=== PATIENT | female | born 1990 | race African-American/Black ===

== ENCOUNTER 2018-05-31 01:46 | Emergency (ER) | payer SELFPAY ==
[2018-05-31 03:55] LABS: Bilirubin Negative (Negative); Blood, Urine Negative (Negative); Clarity CLOUDY (Clear); Glucose, Urine (Dipstick) Negative (Negative); Leukocyte Small (Negative); Nitrite Negative (Negative); Protein, Urine (Dipstick) Negative (Neg-Trace); Specific Gravity, Urine 1.007 (1.002-1.036); Urobilinogen 0.2 mg/dL (0.2-1.0); pH, Urine 5.5 (5.0-9.0)
[2018-05-31 03:57] LABS: Bacteria/HPF Rare-Few HPF (None Seen); Hyaline Casts/LPF 0-3 HYALINE CAST LPF (0-3 Hyaline); Pathc Cast-AUWi Flag 0.43 (0-2.49); Pregnancy Test - Urine (BHCG) Negative (Negative); Pregu Control Background? CLEAR/WHITE (CLR/WHITE); Pregu Control Bar Appear? YES (CONTROL BAR); RBC/HPF 0-3 HPF (0-3); Specific Gravity 1.007 (1.002-1.036)
[2018-05-31 04:25] LABS: #Lymphocytes 1.1 thou/uL (1.20-3.40); #Monocytes 0.4 thou/uL (0.11-0.59); #Neutrophils 8.8 thou/uL (1.40-6.50); %Basophils 0.1 % (0.0-1.0); %Lymphocytes 10.4 % (21.0-51.0); %Monocytes 3.9 % (0.0-10.0); %Neutrophils 85.5 % (42.0-75.0); Hemoglobin 12.1 g/dL (12.0-16.0); Mean Corpuscular HGB CONC 33.8 g/dL (32.0-36.0); Mean Corpuscular Hemoglobin 31.9 pg (27.0-31.0); Mean Corpuscular Volume 94.3 fL (78.0-98.0); Mean Platelet Volume 8.4 fL (7.4-10.4); Platelet Count 145 thou/uL (130-400); RBC Distribution Width 13.2 % (11.5-14.5); Red Blood Cell (RBC) Count 3.78 mill/uL (4.20-5.40); White Blood Cell (WBC) Count 10.3 thou/uL (4.8-10.8)
[2018-05-31] MEDS ORDERED: Fentanyl 100 MCG/2 ML VIAL ONE (04:29)
[2018-05-31] MEDS ORDERED: Ketorolac Tromethamine 30 MG/ML VIAL ONE (04:29)
[2018-05-31 04:39] LABS: ALT (SGPT) 11 U/L (8-55); AST (SGOT) 20 U/L (5-34); Albumin 4.3 g/dL (3.5-5.0); Alkaline Phosphatase 57 U/L (40-150); Anion Gap 13 mmol/L (10-20); BUN (Urea Nitrogen) 8 mg/dL (7.0-18.7); Bilirubin, Total 0.8 mg/dL (0.2-1.2); Calc. Creatinine Clearance 0 mL/min (70-130); Calcium 9.2 mg/dL (7.8-10.44); Carbon Dioxide 20 mmol/L (22-29); Chloride 107 mmol/L (98-107); Estimated GFR-MDRD Greater than 90; Globulin 3.2 g/dL (2.4-3.5); Glucose 112 mg/dL (70-105); Potassium 3.3 mmol/L (3.5-5.1); Protein, Total 7.5 g/dL (6.0-8.3); Sodium 137 mmol/L (136-145)
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
== END 2018-05-31 06:25 | disposition home or self-care (01) ==
LOC: ERS 01:46
DX: S06.0X9A Concussion with loss of consciousness of unspecified duration, initial encounter (principal); S00.11XA Contusion of right eyelid and periocular area, initial encounter; N39.0 Urinary tract infection, site not specified; S40.212A Abrasion of left shoulder, initial encounter; F32.9 Major depressive disorder, single episode, unspecified; Y08.89XA Assault by other specified means, initial encounter
CPT/HCPCS: 70450; 70486; 71045; 80053; 81003; 81015; 81025; 85025; 96361; 96374; 96375; J1885; J3010

== ENCOUNTER 2019-05-09 19:07 | Emergency (ER) | payer SELFPAY ==
[2019-05-09] MEDS ORDERED: Acetaminophen 325 MG TAB ONE (20:09)
== END 2019-05-09 20:42 | disposition home or self-care (01) ==
LOC: ERS 19:07
DX: J02.9 Acute pharyngitis, unspecified (principal)
CPT/HCPCS: 87081; 87430; 99283

== ENCOUNTER 2019-05-29 03:05 | Emergency (ER) | payer SELFPAY ==
[2019-05-29] MEDS ORDERED: Lidocaine 1% w/Epinephrine 1:100K 20 ML VIAL ONE (04:07)
[2019-05-30 20:36] LABS: Chlamydia by PCR DETECTED (NotDetected); GC by PCR Not Detected (NotDetected)
== END 2019-05-29 04:52 | disposition home or self-care (01) ==
LOC: ERS 03:05
DX: N76.4 Abscess of vulva (principal); F32.9 Major depressive disorder, single episode, unspecified
CPT/HCPCS: 56405; 87491; 87591; J2001

== ENCOUNTER 2019-10-01 12:43 | Emergency (ER) | payer SELFPAY ==
[2019-10-01] MEDS ORDERED: Adacel (T-DAP) 0.5 ML SYRINGE ONE (14:19)
== END 2019-10-01 14:32 | disposition home or self-care (01) ==
LOC: ERS 12:43
DX: S71.151A Open bite, right thigh, initial encounter (principal); S51.852A Open bite of left forearm, initial encounter; S81.852A Open bite, left lower leg, initial encounter; F32.9 Major depressive disorder, single episode, unspecified; W54.0XXA Bitten by dog, initial encounter
CPT/HCPCS: 90471; 90715

== ENCOUNTER 2020-05-30 05:18 | Emergency (ER) | payer OTHER | END 2020-05-30 06:02 | disposition home or self-care (01) | LOC: ERS 05:18 | DX: O9A.212 Injury, poisoning and certain other consequences of external causes complicating pregnancy, second trimester (principal); S00.212A Abrasion of left eyelid and periocular area, initial encounter; O99.342 Other mental disorders complicating pregnancy, second trimester; F32.9 Major depressive disorder, single episode, unspecified; Z3A.21 21 weeks gestation of pregnancy; W01.198A Fall on same level from slipping, tripping and stumbling with subsequent striking against other object, initial encounter | CPT/HCPCS: 99283 ==

== ENCOUNTER 2020-06-06 07:02 | Outpatient (CLI) | payer OTHER ==
--- NOTE | 2020-06-06 07:53 | ULT ---
Obstetric sonogram HISTORY: evaluation. Second trimester gestation. FINDINGS: Single intrauterine gestation in cephalic presentation. Cervix is closed and 3.4 cm. Amniot ic fluid is within normal limits. Grade 0 placenta is posterior. spine and kidneys are intact as visualized. No gross intracranial abnormalities are evident. Th ree-vessel cord shows a normal insertion. Four-chamber heart motion at 133 bpm. Measurements are as follows: Biparietal diameter 22 weeks 0 days Head circumference 22 weeks 1 day Abdominal circumference 21 weeks 5 days Femur length 23 weeks 4 days [place] 59 percentile. Estimated date of delivery based on today's sonogram 10/07/2020. IMPRESSION : Single viable intrauterine gestation. Estimated gestational age 22 weeks 3 days.
== END 2020-06-06 07:03 | disposition home or self-care (01) ==
LOC: BICULT 07:02
PROVIDERS: ATTEND Family Medicine
DX: O09.212 Supervision of pregnancy with history of pre-term labor, second trimester (principal); Z3A.22 22 weeks gestation of pregnancy
CPT/HCPCS: 76805

== ENCOUNTER 2020-09-25 02:52 | Inpatient (IN) | payer OTHER ==
[2020-09-25 03:18] VITALS: BMI 25.9
[2020-09-25 04:06] LABS: Amnisure Internal Control QC ACCEPTABLE (ACCEPTABLE); Amnisure Test No Membranes Rupture (No Rupture)
[2020-09-25] MEDS ORDERED: hydrALAZINE 20 MG/ML VIAL SLOW IVP PRN ×2 (04:53→16:47)
[2020-09-25] MEDS ORDERED: Lidocaine 1% (PF) 30 ML VIAL SC PRN (04:53)
[2020-09-25] MEDS ORDERED: Ibuprofen 800 MG TAB PO PRN (04:53)
[2020-09-25] MEDS ORDERED: HYDROcodone/Acetaminophen 5/325 mg Tablet PO PRN (04:53)
[2020-09-25] MEDS ORDERED: NS / Oxytocin 40 units/1000ml 1,000 ML IV PRN (04:53)
[2020-09-25] MEDS ORDERED: Ondansetron PF 4 MG/2 ML Vial IVP PRN ×3 (04:53→16:47)
[2020-09-25] MEDS ORDERED: Butorphanol Tartrate 1 MG/ML VIAL SLOW IVP PRN (04:53)
[2020-09-25] MEDS ORDERED: Promethazine HCl 25 MG/ML VIAL IM PRN ×3 (04:53→16:47)
[2020-09-25] MEDS ORDERED: NS w/ Oxytocin 10 units 500 ML IV SCH (05:00)
[2020-09-25 06:05] LABS: Hemoglobin 11.5 g/dL (12.0-16.0); Mean Corpuscular HGB CONC 32.9 g/dL (32.0-36.0); Mean Corpuscular Hemoglobin 32.7 pg (27.0-31.0); Mean Corpuscular Volume 99.4 fL (78.0-98.0); Mean Platelet Volume 8.5 fL (7.4-10.4); Platelet Count 131 thou/uL (130-400); RBC Distribution Width 12.6 % (11.5-14.5); Red Blood Cell (RBC) Count 3.52 mill/uL (4.20-5.40); White Blood Cell (WBC) Count 9.4 thou/uL (4.8-10.8)
[2020-09-25 06:54] LABS: Hep B Surf Ag Non-Reactive S/CO (NonReactive); Syphilis Antibody Nonreactive (Nonreactive); Syphilis Antibody Index 0.02 S/CO (<1.00 Non-Reactive)
[2020-09-25] MEDS ORDERED: DISCONTINUE ALL PREVIOUS NARCOTICS FS SCH (08:30)
[2020-09-25] MEDS ORDERED: Bupivacaine 0.5% 20 ML, fentaNYL Citrate/PF 400 MCG in Sodium Chloride 0.9% 72 ML EPIDURAL SCH (08:30)
[2020-09-25] MEDS ORDERED: Lidocaine 1% (PF) 30 ML VIAL ONE (08:34)
[2020-09-25] MEDS ORDERED: Misoprostol 200 MCG TAB ONE (08:34)
[2020-09-25] MEDS ORDERED: Methylergonovine 0.2 MG TAB ONE (08:35)
[2020-09-25] MEDS ORDERED: Naloxone HCl 0.4 mg/ml Vial IVP PRN ×2 (09:23)
[2020-09-25] MEDS ORDERED: Acetaminophen 325 MG TAB PO PRN (09:23)
[2020-09-25] MEDS ORDERED: Lactated Ringer's 500 ML IV PRN (09:23)
[2020-09-25] MEDS ORDERED: diphenhydrAMINE 50 MG/ML VIAL IVP PRN (09:23)
[2020-09-25] MEDS ORDERED: ePHEDrine 50 MG/ML VIAL SLOW IVP PRN (09:23)
[2020-09-25] MEDS ORDERED: Communication Order-Pharmacy FS PRN (09:30)
[2020-09-25] MEDS ORDERED: Fentanyl 4 mcg/Bupivacaine 0.1% Cassette 100 ML EPIDURAL SCH (09:30)
[2020-09-25] MEDS ORDERED: Bupivacaine/Epinephrine 0.25% 30 ML VIAL ONE (09:34)
[2020-09-25] MEDS: Lactated Ringer's 1,000 ML IV SCH ×2 (11:22→11:23)
[2020-09-25 11:37] LABS: SARS-CoV-2 MS2 Positive; SARS-CoV-2 N Gene Negative; SARS-CoV-2 S Gene Negative; SARS-CoV-2 by NAA Not Detected (NotDetected); SARS-CoV-2 orf1ab Negative
[2020-09-25] MEDS ORDERED: Fentanyl 100 MCG/2 ML VIAL ONE (13:28)
[2020-09-25] MEDS: NS / Oxytocin 40 units/1000ml 1,000 ML IV SCH ×2 (15:00→16:58)
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
[2020-09-25] MEDS ORDERED: Benzocaine-Menthol 82.5 ML CAN TOP PRN (16:47)
[2020-09-25] MEDS ORDERED: Milk Of Magnesia 30 ML UDCUP PO PRN (16:47)
[2020-09-25] MEDS ORDERED: Lanolin Ointment 7 GM TUBE TOP PRN (16:47)
[2020-09-25] MEDS ORDERED: diphenhydrAMINE 25 MG CAP PO PRN (16:47)
[2020-09-25] MEDS ORDERED: Bisacodyl 10 MG SUPP PR PRN (16:47)
[2020-09-25] MEDS ORDERED: Adacel (T-DAP) 0.5 ML SYRINGE IM ONE (17:00)
[2020-09-25] MEDS: Ferrous Sulfate 325 MG TAB PO SCH (17:24)
[2020-09-25] MEDS: HYDROcodone/Acetaminophen 5/325 mg Tablet PO PRN (17:43)
[2020-09-25] MEDS: Docusate Calcium (SURFAK) 240 MG CAP PO SCH (21:23)
[2020-09-25] MEDS: Ibuprofen 800 MG TAB PO SCH (22:34)
[2020-09-26] MEDS: HYDROcodone/Acetaminophen 5/325 mg Tablet PO PRN ×4 (03:21→20:02)
[2020-09-26] MEDS: Ibuprofen 800 MG TAB PO SCH ×3 (06:21→21:29)
[2020-09-26] MEDS: Ferrous Sulfate 325 MG TAB PO SCH ×2 (07:21→12:50)
[2020-09-26] MEDS: Prenatal Vitamin 1 TAB PO SCH (09:18)
[2020-09-26] MEDS: Docusate Calcium (SURFAK) 240 MG CAP PO SCH ×2 (09:18→21:29)
[2020-09-27] MEDS: Ibuprofen 800 MG TAB PO SCH ×2 (05:17→13:55)
[2020-09-27] MEDS: HYDROcodone/Acetaminophen 5/325 mg Tablet PO PRN ×3 (05:18→13:57)
[2020-09-27] MEDS: Ferrous Sulfate 325 MG TAB PO SCH ×2 (07:28→10:48)
[2020-09-27 08:10] VITALS: BP 108/55; TEMP 98.3
[2020-09-27] MEDS: Prenatal Vitamin 1 TAB PO SCH (08:30)
[2020-09-27] MEDS: Docusate Calcium (SURFAK) 240 MG CAP PO SCH (08:30)
[2020-09-27 10:20] LABS: #Lymphocytes 0.8 thou/uL (1.20-3.40); #Monocytes 0.7 thou/uL (0.11-0.59); #Neutrophils 9.3 thou/uL (1.40-6.50); %Basophils 0.2 % (0.0-1.0); %Eosinophils 0.1 % (0.0-10.0); %Lymphocytes 7.7 % (21.0-51.0); %Neutrophils 85.9 % (42.0-75.0); Hemoglobin 11.8 g/dL (12.0-16.0); Mean Corpuscular HGB CONC 31.9 g/dL (32.0-36.0); Mean Corpuscular Hemoglobin 32.2 pg (27.0-31.0); Platelet Count 128 thou/uL (130-400); RBC Distribution Width 12.8 % (11.5-14.5); Red Blood Cell (RBC) Count 3.67 mill/uL (4.20-5.40); White Blood Cell (WBC) Count 10.8 thou/uL (4.8-10.8)
[2020-09-27 11:50] LABS: Bilirubin Negative (Negative); Blood, Urine 3+ (Negative); Clarity Clear (Clear); Glucose, Urine (Dipstick) Normal (Negative); Ketone, Urine Negative (Negative); Leukocyte 500 Leu/uL (Negative); Nitrite Negative (Negative); Protein, Urine (Dipstick) Negative (Neg-Trace); RBC/HPF Greater than 50 HPF (0-3); Specific Gravity, Urine 1.017 (1.002-1.036); Squamous Epithelial 0-3 HPF (0-3); Urobilinogen Normal mg/dL (Less than 2); WBC/HPF Greater than 50 HPF (0-3)
[2020-09-27 11:52] LABS: Bacteria/HPF 1+ HPF (None Seen)
[2020-09-27 11:53] LABS: Urine Culture Reflex Yes Yes
== END 2020-09-27 16:04 | disposition home or self-care (01) | DRG 807 ==
LOC: L&D/OP 02:52 → L&D 06:36 → 3SE 17:35
PROVIDERS: ADMIT Family Medicine; ATTEND Family Medicine
PROC: 10E0XZZ Delivery of Products of Conception, External Approach (ICD-10-PCS; principal; 2020-09-25)
DX: O69.81X0 Labor and delivery complicated by cord around neck, without compression, not applicable or unspecified (principal); Z37.0 Single live birth; Z3A.38 38 weeks gestation of pregnancy; Z20.828 Contact with and (suspected) exposure to other viral communicable diseases
CPT/HCPCS: 36415; 51702; 81001; 84112; 85025; 85027; 86780; 86850; 86900; 86901; 87086; 87340; 87635; 99285; J2405; J2590; J3010; J3490; U0003

== ENCOUNTER 2021-03-02 00:22 | Emergency (ER) | payer OTHER | END 2021-03-02 00:43 | disposition home or self-care (01) | LOC: ERS 00:22 | DX: K02.9 Dental caries, unspecified (principal); J02.9 Acute pharyngitis, unspecified | CPT/HCPCS: 99283 ==

== ENCOUNTER 2021-12-23 23:02 | Emergency (ER) | payer OTHER | END 2021-12-24 01:00 | disposition home or self-care (01) | LOC: ERS 23:02 | DX: S06.9X9A Unspecified intracranial injury with loss of consciousness of unspecified duration, initial encounter (principal); S80.01XA Contusion of right knee, initial encounter; V43.62XA Car passenger injured in collision with other type car in traffic accident, initial encounter | CPT/HCPCS: 70450 ==

== ENCOUNTER 2021-12-24 18:33 | Emergency (ER) | payer OTHER ==
[2021-12-24] MEDS ORDERED: Ketorolac Tromethamine 30 MG/ML VIAL ONE (20:13)
== END 2021-12-24 20:30 | disposition home or self-care (01) ==
LOC: ERS 18:33
DX: M94.0 Chondrocostal junction syndrome [Tietze] (principal); V89.2XXA Person injured in unspecified motor-vehicle accident, traffic, initial encounter
CPT/HCPCS: 70450; 71045; 96372; J1885

== ENCOUNTER → 2022-08-14 02:52 | Emergency (ER) | payer OTHER | END | disposition home or self-care (01) | LOC: ERS 02:52 | DX: K04.7 Periapical abscess without sinus (principal); K02.9 Dental caries, unspecified | CPT/HCPCS: 99282 ==

== ENCOUNTER 2023-06-16 08:36 | Outpatient (CLI) | payer OTHER | END 2023-06-16 08:37 | disposition home or self-care (01) | LOC: RAD 08:36 | PROVIDERS: ATTEND Nurse Practitioner Family | DX: R07.81 Pleurodynia (principal) ==